=== PATIENT | female | born 1980 | race Caucasian/White ===

== ENCOUNTER 2016-11-03 14:27 | Inpatient (IN) | payer OTHER ==
[2016-11-03] MEDS ORDERED: BRETHINE IVP PRN (16:32)
[2016-11-03] MEDS ORDERED: STADOL IV PRN (16:32)
[2016-11-03] MEDS ORDERED: XYLOCAINE 2% INFILTRATI ONE (16:32)
[2016-11-03] MEDS ORDERED: SUBLIMAZE IV PRN (16:32)
[2016-11-03] MEDS ORDERED: NARCAN 0.4 MG/1 ML IV PRN (16:32)
[2016-11-03] MEDS ORDERED: MINERAL OIL PO PRN (16:32)
[2016-11-03] MEDS ORDERED: BRETHINE SUB-Q PRN (16:32)
[2016-11-03] MEDS ORDERED: ePHEDrine SULFATE IV PRN (16:32)
[2016-11-03] MEDS ORDERED: ZOFRAN IV PRN (16:32)
--- NOTE | 2016-11-03 16:43 | History and Physical Report ---
History of Present Illness Date of examination: 11/03/16 Date of admission: 11/03/16 Chief complaint: pt post dates 40 3/7 weeks, gestational diabetes. presents for induction Past History Past Medical History: no pertinent history Past Surgical History: no surgical history Family/Genetic History: none Social history: no significant social history - Obstetrical History Expected Date of Delivery: 10/31/16 Actual Gestation: 40 Week(s) 3 Day(s) : 4 Number of Living Children: 2 Medications and Allergies Allergies Allergy/AdvReac Type Severity Reaction Status Date / Time No Known Allergies Allergy Unverified 11/03/16 14:52 Home Medications Medication Instructions Recorded Confirmed Last Taken Type No Known Home Medications [No 11/03/16 11/03/16 Unknown History Reported Home Medications] Active Meds: Active Medications Butorphanol Tartrate (Stadol) 2 mg IV Q2H PRN PRN Reason: Pain , Severe (7-10) Ephedrine Sulfate (Ephedrine Sulfate) 10 mg IV Q2M PRN PRN Reason: Hypotension Stop: 11/03/16 16:37 Fentanyl (Sublimaze) 100 mcg IV Q2H PRN PRN Reason: Labor Pain Lactated Ringer's (Lactated Ringers) 1,000 mls @ 125 mls/hr IV DIRECT MATTHEW Oxytocin/Sodium Chloride (Pitocin/Ns 20 Unit/1000ml Drip) 1,000 mls @ 125 mls/ hr IV DIRECT MATTHEW Oxytocin/Sodium Chloride (Pitocin/Ns 30 Unit/500ml) 500 mls @ 2 mls/hr IV TITR MATTHEW PRN Reason: Protocol Lidocaine (Xylocaine 2%) 20 ml INFILTRATI ONCE ONE Stop: 11/03/16 16:33 Mineral Oil (Mineral Oil) 30 ml PO QHS PRN PRN Reason: Constipation Naloxone HCl (Narcan 0.4 Mg/1 Ml) 0.1 mg IV Q2MIN PRN PRN Reason: Res Rate </= 8 or 02 SAT < 92% Ondansetron HCl (Zofran) 4 mg IV Q8H PRN PRN Reason: Nausea And Vomiting Terbutaline Sulfate (Brethine) 0.25 mg SUB-Q ONCE PRN PRN Reason: Hyperstimulation/Hypertonicity Stop: 11/03/16 16:33 Terbutaline Sulfate (Brethine) 0.25 mg IVP ONCE PRN PRN Reason: Hyperstimulation/Hypertonicity Stop: 11/03/16 16:33 Review of Systems All systems: negative Gastrointestinal: abdominal pain - Vital Signs Vital signs: Vital Signs Pulse BP 90 115/62 11/03/16 14:51 11/03/16 14:51 Temp Pulse Resp BP Pulse Ox 98.3 F 83 122/63 97 11/03/16 14:52 11/03/16 16:36 11/03/16 16:31 11/03/16 16:36 - Physical Exam Breasts: Positive: deferred Cardiovascular: Regular rate, Normal S1, Normal S2 Abdomen: Positive: normal appearance, soft, normal bowel sounds. Negative: distention, tenderness Vulva: both: normal Vagina: Positive: normal moisture. Negative: discharge Cervix: Negative: lesion, discharge Uterus: Positive: normal size, normal contour Adnexa: both: normal Anus/Rectum: Positive: normal perianal skin, heme negative. Negative: rectal mass, hemorrhoids Extremities: Deep Tendon Reflex Grade: Normal +2 - Obstetrical FHR: category 1 Uterine Contraction Monitor Mode: External Cervical Dilatation: 1 Cervical Effacement Percentage: 50 station: -3 Uterine Contraction Pattern: Irregular Uterine Tone Measurement Phase: Resting Uterine Contraction Intensity: Mild Results All other labs normal. Assessment and Plan Post date pregancy, gestational diabetes Plan- pitocin induction, accuchecks, anticipate
[2016-11-03] MEDS ORDERED: PITOCin/NS 20 UNIT/1000ML DRIP 1,000 ML IV SCH (17:00)
[2016-11-03] MEDS ORDERED: LACTATED RINGERS 1,000 ML IV SCH (17:00)
[2016-11-03 17:16] LABS: Hemoglobin 10.8 gm/dl (10.1-14.3); Mean Corpuscular HGB Conc 33 % (30-34); Mean Corpuscular Hemoglobin 26 pg (28-32); Mean Corpuscular Volume 81 fl (79-97); Platelet Count 276 K/mm3 (140-440); Red Blood Count 4.09 M/mm3 (3.65-5.03); Red Cell Distribution Width 16.1 % (13.2-15.2); White Blood Count 10.9 K/mm3 (4.5-11.0)
[2016-11-03] MEDS: PITOCin/NS 30 UNIT/500ML 500 ML IV SCH ×2 (17:20→18:00)
[2016-11-04] MEDS ORDERED: XYLOCAINE 2% INFILTRATI ONE (00:16)
--- NOTE | 2016-11-04 00:40 | Procedure Note ---
OB Delivery Note - Delivery Date of Delivery: 11/04/16 Surgeon: KALYAN THOMPSON Estimated blood loss: 200cc - Vaginal Delivery presentation: vertex Delivery position: OA Intrapartum events: none Delivery induction: oxytocin Delivery monitor: external FHT, external uterine Route of delivery: Delivery placenta: spontaneous Delivery cord: 3 umbilical vessels Episiotomy: none Delivery laceration: 2nd degree Delivery repair: vicryl Anesthesia: local (lidocaine) - Infant A at 1 minute: 8 at 5 minutes: 9 Infant Gender: Female (wt 7-3, and mother tolerated the procedure well.)
[2016-11-04] MEDS ORDERED: SODIUM CHLORIDE FLUSH SYRINGE 10 ML IV PRN (01:54)
[2016-11-04] MEDS ORDERED: PITOCin/NS 20 UNIT/1000ML DRIP 1,000 ML IV SCH (01:54)
[2016-11-04] MEDS: MOTRIN PO SCH ×4 (01:54→23:34)
[2016-11-04] MEDS ORDERED: PHENERGAN PR PRN (01:54)
[2016-11-04] MEDS ORDERED: DERMOPLAST TP PRN (01:54)
[2016-11-04] MEDS ORDERED: MILK OF MAGNESIA PO PRN (01:54)
[2016-11-04] MEDS ORDERED: LANSINOH TP PRN (01:54)
[2016-11-04] MEDS ORDERED: DULCOLAX PR PRN (01:54)
[2016-11-04] MEDS ORDERED: PERCOCET 5/325 PO PRN (01:54)
[2016-11-04] MEDS ORDERED: ZOFRAN IV PRN (01:54)
[2016-11-04] MEDS ORDERED: PHENERGAN PO PRN (01:54)
[2016-11-04] MEDS ORDERED: BENADRYL PO PRN (01:54)
[2016-11-04] MEDS ORDERED: TUCKS PAD TP PRN (01:54)
[2016-11-04] MEDS ORDERED: TYLENOL PO PRN (01:54)
[2016-11-04] MEDS ORDERED: BOOSTRIX IM ONE (06:00)
--- NOTE | 2016-11-04 07:45 | Ultrasound Report ---
BIOPHYSICAL PROFILE: History: Post dates, gestational diabetes. Technique: Transabdominal ultrasound with Doppler interrogation. 2 - breathing movements 2 - movements 2 - posture and tone 2 - Qualitative amniotic fluid volume 8 - TOTAL SCORE OF POSSIBLE 8 Heart Rate (bpm) 149
--- NOTE | 2016-11-04 08:49 | Ultrasound Report ---
OB ULTRASOUND: HISTORY: well-being, gestational diabetes, post dates. TECHNIQUE: Transabdominal ultrasound with Doppler interrogation. Gestation: chance Position: cephalic Amniotic Fluid: WNL (7-24 cm) CINDY = 8.9 cm Placenta: fundal Placental Grade: II Heart Rate: 149 BPM BPD: 8.8 cm = 35 w 4 d HC: 32.11 cm = 36 w 2 d AC: 33.7 cm = 37 w 4 d FL: 7.9 cm = 40 w 2 d HC/AC Ratio: 0.95 Cephalic Index: 79.8 Estimated Weight: 3316 grams Clinical age = 40 w 3 d EDC: 10-31-16 US Gest. Age = 37 w 3 d EDC: 11-21-16
[2016-11-04] MEDS ORDERED: FLUARIX QUAD 2016-2017(36 MOS+) IM ONE (12:00)
[2016-11-04] MEDS: FEOSOL PO SCH ×2 (13:10→23:34)
[2016-11-04 15:20] LABS: Hematocrit 28.9 % (30.3-42.9); Hemoglobin 9.5 gm/dl (10.1-14.3)
[2016-11-05] MEDS: MOTRIN PO SCH ×2 (06:02→12:14)
--- NOTE | 2016-11-05 06:58 | Progress Note ---
Assessment and Plan ppd 1 s/p . plan d/c home this pm Subjective - Subjective Date of service: 11/05/16 Principal diagnosis: ppd 1 s/p Interval history: routine pp care Patient reports: appetite normal, voiding normally, pain well controlled : doing well Objective - Vital Signs Latest vital signs: Vital Signs Temp Pulse Resp BP 11/05/16 00:17 98.6 F 77 20 110/65 11/04/16 15:44 98.6 F 75 18 101/64 11/04/16 08:58 98.6 F 73 18 110/62 Intake and Output 11/04/16 11/04/16 11/05/16 14:59 22:59 06:59 Intake Total 720 360 Output Total 300 Balance 420 360 Intake: Oral 720 360 Output: Urine 300 Void 300 Other: Total, Intake Amount 480 360 Total, Output Amount 300 # Voids Void 1 1 - Exam Breasts: Present: deferred Cardiovascular: Present: Regular rate, Normal S1, Normal S2 Lungs: Present: Clear to auscultation Abdomen: Present: normal appearance, soft Vulva: both: normal Uterus: Present: normal, firm Extremities: Present: normal Incision: Present: normal, dry, intact - Labs Labs: Abnormal lab results 11/04/16 11/04/16 Range/Units 15:06 15:41 Hgb 9.5 L (10.1-14.3) gm/dl Hct 28.9 L (30.3-42.9) % POC Glucose 125 H (70-105)
--- NOTE | 2016-11-05 07:02 | Discharge Summary ---
Providers - Providers Date of Admission: 11/03/16 16:49 Date of discharge: 11/05/16 Attending physician: KALYAN THOMPSON Primary care physician: STENCIL SPRAYER Hospitalization Reason for admission: induction of labor Delivery: Procedure details: Episiotomy: none Laceration: 2nd degree Incision: normal, dry, intact Other procedures: none complications: none baby: female Hospital course: routine pp course Condition at discharge: Good Disposition: DISCHARGED TO HOME OR SELFCARE - Discharge Diagnoses (1) (normal spontaneous vaginal delivery) Status: Acute (2) Anemia Status: Acute Comment: Secondary to acute blood loss at delivery Plan - Discharge Medications Prescriptions: Ferrous Sulfate [Feosol 325 MG tab] 325 mg PO BID #60 tablet Ibuprofen [Motrin 800 MG tab] 800 mg PO Q8HR PRN #30 tablet PRN Reason: Pain oxyCODONE /ACETAMINOPHEN [Percocet 5/325] 1 tab PO Q6HR PRN #30 tablet PRN Reason: Pain - Provider Discharge Summary Activity: routine, no sex for 6 weeks, no heavy lifting 4 weeks, no strenuous exercise Diet: routine Instructions: routine Additional instructions: [] Smoking cessation referral if applicable(refer to patient education folder for contact #) [] Refer to [facility] Booklet Call your doctor immediately for: * Fever > 100.5 * Heavy vaginal bleeding ( >1 pad per hour) * Severe persistent headache * Shortness of breath * Reddened, hot, painful area to leg or breast * Drainage or odor from incision. * Keep incision clean and dry at all times and follow doctor's instructions regarding bathing/showering - Follow up plan Follow up: LAURA MOURA MD [Primary Care Provider] - 7 Days KALYAN THOMPSON MD [Staff Physician] - 6 Weeks
[2016-11-05] MEDS: FEOSOL PO SCH (12:14)
[2016-11-05 12:49] VITALS: BP 119/66
== END 2016-11-05 14:59 | disposition home or self-care (01) | DRG 775 ==
LOC: TRG 14:27 → LD 16:09 → TRG 16:48 → LD 16:49 → OB 11-04 01:53
PROVIDERS: ADMIT Specialist; ATTEND Specialist
PROC: 3E033VJ Introduction of Other Hormone into Peripheral Vein, Percutaneous Approach (ICD-10-PCS; principal; 2016-11-04)
PROC: 0KQM0ZZ Repair Perineum Muscle, Open Approach (ICD-10-PCS; principal; 2016-11-04)
PROC: 10E0XZZ Delivery of Products of Conception, External Approach (ICD-10-PCS; principal; 2016-11-04)
DX: O48.0 Post-term pregnancy (principal); D62 Acute posthemorrhagic anemia; O24.429 Gestational diabetes mellitus in childbirth, unspecified control; Z3A.40 40 weeks gestation of pregnancy; Z37.0 Single live birth; O70.1 Second degree perineal laceration during delivery; O99.03 Anemia complicating the puerperium
CPT/HCPCS: 36415; 76816; 76819; 82962; 85014; 85018; 85027; 86850; 86900; 86901; 88307; 90471; 90715; 99211; G0463; J2590; J3010; J7120